=== PATIENT | female | born 1955 | race Caucasian/White ===

== ENCOUNTER 2020-10-03 17:35 | Observation (INO) ==
[2020-10-03] MEDS ORDERED: ONDANSETRON 4 MG/2 ML VIAL IV ONE (17:42)
[2020-10-03] MEDS ORDERED: 0.9 % SODIUM CHLORIDE 2,000 ML IV ONE (17:42)
--- NOTE | 2020-10-03 17:54 | Emergency Department Note ---
Weakness HPI General Chief complaint: Weakness Stated complaint: Weakness Time Seen by Provider: 10/03/20 17:42 Source: patient, family, RN notes reviewed and old records reviewed Mode of arrival: ambulatory Limitations: altered mental status History of Present Illness HPI Narrative: Narrative: A 65-year-old female complaining of generalized weakness. Per her family she was recently discharged from [facility] for pancreatic cancer. She had a stent placed in her duodenum so that she was able to eat. She has been taking her pain medicines. Patient is had increasing generalized weakness to the point where she cannot get up and get out of bed anymore. She is not eating or drinking. Per her son who is at bedside she has had poor p.o. intake for the last 2 to 3 days. He denies any other complaints no vomiting no shift but the patient does complain of nausea no fevers or chills no bowel or bladder changes. MD Complaint: generalized weakness and lack of energy Onset (ago): day(s) Duration: constant Location: generalized Migration: none Quality: aching and dull Improves with: medication Worsens with: movement Context: recent illness Associated symptoms: Reports confusion, loss of appetite and nausea/vomiting; Denies chest pain, dark stools, diaphoresis, dysuria, easy bruising, fever/chil ls, headaches, myalgias, rash, shortness of breath and syncope Related Data Previous Rx's Medication Instructions Recorded cyanocobalamin (vitamin B-12) 1,000 mcg IM QMONTH #1 ml 05/07/19 1,000 mcg/mL injection solution cyclobenzaprine 10 mg tablet 10 mg PO TID PRN #60 tab 09/29/20 diazepam 5 mg tablet 5 mg PO QHS PRN #30 tab 09/29/20 Allergies Allergy/AdvReac Type Severity Reaction Status Date / Time codeine Allergy Intermediate Unknown Verified 09/29/20 14:30 Review of Systems ROS ROS Narrative: Narrative: All systems ED: reviewed and negative except as stated. [facility] Narrative Patient History Narrative: Narrative: Medical/Surgical/Family History All Active Problems (Updated 10/03/20 @ 18:16 by Nick Li MD) Pancreatic mass (Acute) Abdominal pain (Acute) Pancreatic cancer (Acute) Heartburn (Acute) Abdominal pain (Acute) Exposure to STD (Acute) Medical History (Updated 10/03/20 @ 18:16 by Nick Li MD) Annual physical exam Cervical disc disorder with radiculopathy Depression Dermatitis Fatigue Hyperlipidemia IBS (irritable bowel syndrome) Insomnia Knee pain Menopausal symptoms Neck pain Other salvage determiner (current) drug therapy Panic attack Radiculopathy, lumbar region Shoulder impingement syndrome Stress Surgical History H/O section H/O tubal ligation Family History Mother Hypertension Hyperlipidemia Father Prostate cancer Social History Smoking Status: Never smoker Exam Narrative Narrative: Narrative: General Limitations: altered mental status General appearance: Present cachectic, grimacing, in distress, lethargic, malaise and thin Head Head: Present atraumatic, normocephalic and normal inspection Eye Eye: Present normal appearance, PERRL and EOMI; Absent scleral icterus and conjunctival injection ENT ENT: Present normal exam, normal oropharynx and mucous membranes dry Neck Neck: Present normal inspection, full ROM and trachea midline; Absent tenderness, lymphadenopathy and thyromegaly Chest Chest: Present normal inspection and symmetric chest wall rise; Absent tenderness Respiratory Respiratory: Present normal lung sounds bilaterally; Absent respiratory distress, wheezes, stridor, accessory muscle use and prolonged expiratory phase Cardiovascular Cardiovascular: Present normal rhythm and tachycardia; Absent systolic murmur and diastolic murmur Adbominal Abdominal: Present soft, tenderness and hypoactive bowel sounds; Absent distention, guarding, rebound, rigidity, organomegaly, trauma, ascites, mass, b ruit, pulsatile mass and hernia Extremities Extremities: Present normal inspection and full ROM; Absent normal capillary refill, pedal edema, pretibial edema and calf tenderness Back Back: Present normal inspection; Absent CVA tenderness (R), CVA tenderness (L) and spinous process tenderness Neurological Neurological: Present alert; Absent motor sensory deficit Expanded Neurological Patient oriented to: Present person Speech: Present fluid speech Coma Scale Eye Opening: To Voice Coma Scale Motor Response: Localizes to Pain Coma Scale Verbal Response: Confused Coma Scale Total: 12 Psychiatric Psychiatric: Present flat affect and tearful Skin Skin: Present warm (WNL) and dry Course Vital Signs Vital signs: Vital Signs Temperature 98.4 F 10/03/20 17:36 Pulse Rate 111 H 10/03/20 17:36 Respiratory Rate 20 10/03/20 17:36 Blood Pressure 120/90 10/03/20 17:36 Pulse Oximetry (%) 99 10/03/20 17:36 Temperature 98.2 F 10/04/20 04:00 Pulse Rate 106 H 10/04/20 04:00 Respiratory Rate 16 10/04/20 04:00 Blood Pressure 120/80 10/04/20 04:00 Pulse Oximetry (%) 96 10/04/20 04:00 MDM MDM Narrative Medical decision making narrative: Narrative: 65-year-old female with pancreatic cancer complaining of weakness associated with poor p.o. intake and pain medication use with continued unrelenting pain. Labs were ordered IV fluids was ordered IV pain medicines as ordered and on abdominal CT scan were ordered these are pending and care is endorsed to Dr. Smith at 1800 hrs. Lab Data Result diagrams: 10/03/20 17:58 10/03/20 17:58 Labs: Lab Results 10/03/20 10/03/20 10/03/20 Range/Units 17:58 17:58 17:58 WBC 5.9 (4.5-11.0) K/mcL RBC 3.89 L (4.00-5.20) M/mcL Hgb 12.4 (12.0-15.0) g/dL Hct 38.9 (36.0-48.0) % MCV 100.0 (80.0-100.0) fL MCH 31.9 (26.0-34.0) pg MCHC 31.9 (31.0-36.0) g/dL RDW 11.3 L (11.5-14.5) % Plt Count 300 (140-440) K/mcL MPV 9.8 (7.4-10.4) fL Neut % (Auto) 50.9 (38.0-78.0) % Lymph % (Auto) 36.0 (15.0-49.0) % [place] % (Auto) 8.3 (1.0-12.0) % Eos % (Auto) 4.1 (0.0-7.0) % Baso % (Auto) 0.7 (0.0-2.0) % Lymph # (Auto) 2.13 (1.50-4.80) K/mcL [place] # (Auto) 0.49 (0.10-0.90) K/mcL Eos # (Auto) 0.24 (0.00-0.70) K/mcL Baso # (Auto) 0.04 (0.00-0.20) K/mcL Absolute Neutrophils 3.02 (1.80-8.00) K/mcL VBG Lactic Acid (0.5-2.0) mmol/L Sodium 136 (133-145) mmol/L Potassium 3.7 (3.3-5.1) mmol/L Chloride 100 (96-108) mmol/L Carbon Dioxide 26 (22-30) mmol/L Anion Gap 10.0 (8.0-16.0) BUN 6 L (8-23) mg/dL Creatinine 0.8 (0.6-1.1) mg/dL GFR Calculation 78 Glucose 102 (70-105) mg/dL Calcium 9.4 (8.6-10.4) mg/dL Total Bilirubin 0.3 (0.1-1.0) mg/dL AST 16 (<32) U/L ALT 8 (<40) U/L Alkaline Phosphatase 88 (39-117) U/L Troponin T < 0.01 (<0.03) ng/mL Total Protein 6.7 (5.9-8.4) gm/dL Albumin 3.6 (3.2-5.2) gm/dL Globulin 3.1 (2.2-3.7) gm/dL Albumin/Globulin Ratio 1.2 (1.0-2.3) 10/03/20 Range/Units 18:13 WBC (4.5-11.0) K/mcL RBC (4.00-5.20) M/mcL Hgb (12.0-15.0) g/dL Hct (36.0-48.0) % MCV (80.0-100.0) fL MCH (26.0-34.0) pg MCHC (31.0-36.0) g/dL RDW (11.5-14.5) % Plt Count (140-440) K/mcL MPV (7.4-10.4) fL Neut % (Auto) (38.0-78.0) % Lymph % (Auto) (15.0-49.0) % [place] % (Auto) (1.0-12.0) % Eos % (Auto) (0.0-7.0) % Baso % (Auto) (0.0-2.0) % Lymph # (Auto) (1.50-4.80) K/mcL [place] # (Auto) (0.10-0.90) K/mcL Eos # (Auto) (0.00-0.70) K/mcL Baso # (Auto) (0.00-0.20) K/mcL Absolute Neutrophils (1.80-8.00) K/mcL VBG Lactic Acid 0.9 (0.5-2.0) mmol/L Sodium (133-145) mmol/L Potassium (3.3-5.1) mmol/L Chloride (96-108) mmol/L Carbon Dioxide (22-30) mmol/L Anion Gap (8.0-16.0) BUN (8-23) mg/dL Creatinine (0.6-1.1) mg/dL GFR Calculation Glucose (70-105) mg/dL Calcium (8.6-10.4) mg/dL Total Bilirubin (0.1-1.0) mg/dL AST (<32) U/L ALT (<40) U/L Alkaline Phosphatase (39-117) U/L Troponin T (<0.03) ng/mL Total Protein (5.9-8.4) gm/dL Albumin (3.2-5.2) gm/dL Globulin (2.2-3.7) gm/dL Albumin/Globulin Ratio (1.0-2.3) ED POC Tests ED POC Tests: FER - SARS Antigen Negative EKG Data EKG #1: EKG attestation: Yes I reviewed and interpreted this EKG. EKG shows normal: sinus rhythm Rate: tachycardia (109) Rhythm: NSR P waves: LAE Ectopy: PVC Interpretation: nonspecific ST-T wave changes Pulse Oximetry Data Pulse Ox %: 99 Interpretation: 99% on room air and within normal limits Discharge Plan Patient/Caregiver Discharge Instructions Pt seen by E COMMERCE SPECIALIST/PA only: No Clinical Impression: Pancreatic cancer, Abdominal pain Patient Disposition: Still a Patient Discharge Date/Time: 10/03/20 22:15 Discharge Comment: Room 126
[2020-10-03] MEDS: morphine 2 MG/ML VIAL IV PRN ×2 (18:14→19:50)
[2020-10-03 18:33] LABS: Basophils # (Auto) 0.04 K/mcL (0.00-0.20); Basophils % (Auto) 0.7 % (0.0-2.0); Eosinophils # (Auto) 0.24 K/mcL (0.00-0.70); Eosinophils % (Auto) 4.1 % (0.0-7.0); Hematocrit 38.9 % (36.0-48.0); Hemoglobin 12.4 g/dL (12.0-15.0); Lymphocytes # (Auto) 2.13 K/mcL (1.50-4.80); Mean Corpuscular HGB Conc 31.9 g/dL (31.0-36.0); Mean Platelet Volume 9.8 fL (7.4-10.4); Monocytes # (Auto) 0.49 K/mcL (0.10-0.90); Monocytes % (Auto) 8.3 % (1.0-12.0); Neutrophils % (Auto) 50.9 % (38.0-78.0); Platelet Count 300 K/mcL (140-440); RBC 3.89 M/mcL (4.00-5.20); Red Cell Distribution Width 11.3 % (11.5-14.5); WBC 5.9 K/mcL (4.5-11.0)
[2020-10-03 18:55] LABS: ALT/SGPT 8 U/L (<40); AST/SGOT 16 U/L (<32); Albumin 3.6 gm/dL (3.2-5.2); Albumin/Globulin Ratio 1.2 (1.0-2.3); Alkaline Phosphatase 88 U/L (39-117); Bilirubin,Total 0.3 mg/dL (0.1-1.0); Blood Urea Nitrogen 6 mg/dL (8-23); Calcium 9.4 mg/dL (8.6-10.4); Carbon Dioxide 26 mmol/L (22-30); Chloride 100 mmol/L (96-108); Globulin 3.1 gm/dL (2.2-3.7); Glomerular Filtration Rate 78; Glucose 102 mg/dL (70-105)
--- NOTE | 2020-10-03 19:08 | Emergency Department Note ---
HPI General Chief complaint: Weakness Stated complaint: Weakness Time Seen by Provider: 10/03/20 17:42 Source: patient, family, RN notes reviewed and old records reviewed Mode of arrival: ambulatory Limitations: altered mental status History of Present Illness HPI Narrative: Narrative: 65-year-old female is brought in to the emergency department by her son because of severe abdominal pain, inability to take p.o. fluids, and sleeping much of the day. Yesterday the patient was able to have Jell-O and water today she has been in excruciating pain. She has mostly been asleep but she when she does wake up she is in pain. Patient was diagnosed with pancreatic cancer and seen at [facility]. A duodenal stent was placed because of obstruction. The family is awaiting consultation on Monday with the oncology surgeon and the oncology team regarding chemotherapy. At the present time the son is most c oncerned about pain and hydration/nutrition. During review of medications it was noted that the son believes diazepam was a pain medication and had been given that to her throughout the day the pain medicine to be given several hours prior to her presentation to the ER. It was felt that this medicine may be causing the patient's excessive somnolence. Related Data Previous Rx's Medication Instructions Recorded cyanocobalamin (vitamin B-12) 1,000 mcg IM QMONTH #1 ml 05/07/19 1,000 mcg/mL injection solution cyclobenzaprine 10 mg tablet 10 mg PO TID PRN #60 tab 09/29/20 diazepam 5 mg tablet 5 mg PO QHS PRN #30 tab 09/29/20 Allergies Allergy/AdvReac Type Severity Reaction Status Date / Time codeine Allergy Unknown Unknown Verified 10/04/20 07:48 Review of Systems ROS ROS Narrative: Narrative: Limitations: ROS unobtainable due to patients medical condition [facility] Narrative Patient History Narrative: Narrative: Medical/Surgical/Family History All Active Problems (Updated 10/04/20 @ 10:13 by Julian Diego MD) Pancreatic mass (Acute) Abdominal pain (Acute) Pancreatic cancer (Acute) Heartburn (Acute) Abdominal pain (Acute) Exposure to STD (Acute) Medical History (Updated 10/04/20 @ 10:13 by Julian Diego MD) Annual physical exam Cervical disc disorder with radiculopathy Depression Dermatitis Fatigue Hyperlipidemia IBS (irritable bowel syndrome) Insomnia Knee pain Menopausal symptoms Neck pain Other exterminator helper termite (current) drug therapy Panic attack Radiculopathy, lumbar region Shoulder impingement syndrome Stress Surgical History H/O section H/O tubal ligation Family History Mother Hypertension Hyperlipidemia Father Prostate cancer Social History Smoking Status: Never smoker Exam Narrative Narrative: Narrative: General Limitations: altered mental status General appearance: Present sleepy Head Head: Present atraumatic and normocephalic Eye Eye: Present PERRL ENT ENT: Present mucous membranes dry Neck Neck: Present normal inspection and trachea midline Chest Chest: Present normal inspection and symmetric chest wall rise Respiratory Respiratory: Present normal lung sounds bilaterally; Absent respiratory distress Cardiovascular Cardiovascular: Present regular rate and normal rhythm Adbominal Abdominal: Present tenderness (Primarily right upper quadrant and epigastric.) Extremities Extremities: Present normal inspection Back Back: Present normal inspection Neurological Neurological: Present other (Sleeping mostly but was able to be aroused and answer questions appropriately.) Psychiatric Psychiatric: Present normal affect (To the extent that this could be assessed.) Skin Skin: Present warm (WNL) and dry Course Reevaluation(s) Reevaluation #1: Discussed with son and reviewed her medicines. He has been giving her diazepam during the day for pain. Her last dose of diazepam was at 4:15 PM. She has been drowsy all day. Time: 18:30 Vital Signs Vital signs: Vital Signs Temperature 98.4 F 10/03/20 17:36 Pulse Rate 111 H 10/03/20 17:36 Respiratory Rate 20 10/03/20 17:36 Blood Pressure 120/90 10/03/20 17:36 Pulse Oximetry (%) 99 10/03/20 17:36 Temperature 99.1 F H 10/04/20 08:00 Pulse Rate 94 H 10/04/20 08:00 Respiratory Rate 20 10/04/20 08:00 Blood Pressure 124/81 10/04/20 08:00 Pulse Oximetry (%) 97 10/04/20 08:00 [facility] Narrative Medical decision making narrative: Narrative: 65-year-old female brought to the emerge department by her son because of excruciating abdominal pain, dehydration, and inability to take in nutrition. All of this is secondary to a pancreatic cancer diagnosis made last week made during the week. Differential diagnosis includes somnolence secondary to opiates, somnolence secondary to benzodiazepines, abdominal pain secondary to complications of pancr eatic cancer. Case was discussed with the hospitalist who came down evaluate the patient and felt the hospital could offer this patient both pain relief as well as hydration and possible nutrition support. Patient will be admitted to the hospital for further care. Lab Data Result diagrams: 10/03/20 17:58 10/03/20 17:58 Labs: Lab Results 10/03/20 10/03/20 10/03/20 Range/Units 17:58 17:58 17:58 WBC 5.9 (4.5-11.0) K/mcL RBC 3.89 L (4.00-5.20) M/mcL Hgb 12.4 (12.0-15.0) g/dL Hct 38.9 (36.0-48.0) % MCV 100.0 (80.0-100.0) fL MCH 31.9 (26.0-34.0) pg MCHC 31.9 (31.0-36.0) g/dL RDW 11.3 L (11.5-14.5) % Plt Count 300 (140-440) K/mcL MPV 9.8 (7.4-10.4) fL Neut % (Auto) 50.9 (38.0-78.0) % Lymph % (Auto) 36.0 (15.0-49.0) % [place] % (Auto) 8.3 (1.0-12.0) % Eos % (Auto) 4.1 (0.0-7.0) % Baso % (Auto) 0.7 (0.0-2.0) % Lymph # (Auto) 2.13 (1.50-4.80) K/mcL [place] # (Auto) 0.49 (0.10-0.90) K/mcL Eos # (Auto) 0.24 (0.00-0.70) K/mcL Baso # (Auto) 0.04 (0.00-0.20) K/mcL Absolute Neutrophils 3.02 (1.80-8.00) K/mcL VBG Lactic Acid (0.5-2.0) mmol/L Sodium 136 (133-145) mmol/L Potassium 3.7 (3.3-5.1) mmol/L Chloride 100 (96-108) mmol/L Carbon Dioxide 26 (22-30) mmol/L Anion Gap 10.0 (8.0-16.0) BUN 6 L (8-23) mg/dL Creatinine 0.8 (0.6-1.1) mg/dL GFR Calculation 78 Glucose 102 (70-105) mg/dL Calcium 9.4 (8.6-10.4) mg/dL Total Bilirubin 0.3 (0.1-1.0) mg/dL AST 16 (<32) U/L ALT 8 (<40) U/L Alkaline Phosphatase 88 (39-117) U/L Troponin T < 0.01 (<0.03) ng/mL Total Protein 6.7 (5.9-8.4) gm/dL Albumin 3.6 (3.2-5.2) gm/dL Globulin 3.1 (2.2-3.7) gm/dL Albumin/Globulin Ratio 1.2 (1.0-2.3) 10/03/20 Range/Units 18:13 WBC (4.5-11.0) K/mcL RBC (4.00-5.20) M/mcL Hgb (12.0-15.0) g/dL Hct (36.0-48.0) % MCV (80.0-100.0) fL MCH (26.0-34.0) pg MCHC (31.0-36.0) g/dL RDW (11.5-14.5) % Plt Count (140-440) K/mcL MPV (7.4-10.4) fL Neut % (Auto) (38.0-78.0) % Lymph % (Auto) (15.0-49.0) % [place] % (Auto) (1.0-12.0) % Eos % (Auto) (0.0-7.0) % Baso % (Auto) (0.0-2.0) % Lymph # (Auto) (1.50-4.80) K/mcL [place] # (Auto) (0.10-0.90) K/mcL Eos # (Auto) (0.00-0.70) K/mcL Baso # (Auto) (0.00-0.20) K/mcL Absolute Neutrophils (1.80-8.00) K/mcL VBG Lactic Acid 0.9 (0.5-2.0) mmol/L Sodium (133-145) mmol/L Potassium (3.3-5.1) mmol/L Chloride (96-108) mmol/L Carbon Dioxide (22-30) mmol/L Anion Gap (8.0-16.0) BUN (8-23) mg/dL Creatinine (0.6-1.1) mg/dL GFR Calculation Glucose (70-105) mg/dL Calcium (8.6-10.4) mg/dL Total Bilirubin (0.1-1.0) mg/dL AST (<32) U/L ALT (<40) U/L Alkaline Phosphatase (39-117) U/L Troponin T (<0.03) ng/mL Total Protein (5.9-8.4) gm/dL Albumin (3.2-5.2) gm/dL Globulin (2.2-3.7) gm/dL Albumin/Globulin Ratio (1.0-2.3) ED POC Tests ED POC Tests: FER - SARS Antigen Negative EKG Data EKG #1: EKG attestation: Yes I reviewed and interpreted this EKG. EKG shows normal: sinus rhythm, axis and QRS complexes Rate: tachycardia [place]/QRS: normal P waves: LAE Discharge Plan Patient/Caregiver Discharge Instructions Pt seen by INFORMATION SYSTEMS TECHNICIAN/PA only: No Clinical Impression: Pancreatic cancer, Abdominal pain Patient Disposition: Xfer As Inpt ([facility]) Discharge Date/Time: 10/03/20 22:15 Discharge Comment: Room 126
--- NOTE | 2020-10-03 21:04 | Internal Med History&Physical ---
HPI History of Present Illness Patient information: Note initiated : 10/03/20 at 8:54 pm Service Date, if different from initiated Date: [] Patient: Eunice Hong 65 y/o F admitted on for Weakness. Chief Complaint: [] History of present illness: Ms. Hong is a 65 year old female with recently diagnosed pancreatic cancer presented to the emergency department for abdominal pain inability to keep down liquids and food. The patient was recently seen at [facility] in [place] and had a duodenal stent placed. She was discharged to home on Monday after a brief hospital stay. The plan is for the oncology team at [facility] to the patient early next week to discuss a treatment plan. Review of available imaging which is a recent CT abdomen contrast 09/29/20 showed a large necrotic pancreas which is caused pain invasion of the third portion of the duodenum, no metastatic disease seen on the CT scan. I explained to the patient that we do not have oncology services's Hospital however we can offer pain control, IV fluid hydration and supportive care. Patient is planning to follow-up with [facility] to discuss treatment options. We discussed CODE STATUS, the patient wishes to be full code. Review of systems Constitutional: Positive for fatigue and recent 15 pound weight loss. Eyes: no vision changes or pain Cardiovascular: no chest pain, no palpitations Respiratory: no cough or dyspnea Gastrointestinal: Positive for abdominal pain, decreased appetite. Genitourinary: no dysuria or difficulty voiding Musculoskeletal: no arthralgia or myalgia Integumentary: no skin lesion or wound Neurological: no focal weakness or numbness Psychiatric: no anxiety or depression Physical exam General: Ill-appearing and cachectic female in no apparent distress Head: Atraumatic, normal inspection. Eyes: normal appearance, no scleral icterus. Neck: full ROM Respiratory: no respiratory distress. Cardiovascular: normal rate and rhythm, S1, S2. GI/Abdominal: Epigastric abdominal pain present, guarding. Extremities: full range of motion, nontender. Neurological: CN II-XII intact, intact motor, intact sensation. Psychiatric: normal mood. Skin: warm, normal color PFSH PFSH All Active Problems (Updated 10/03/20 @ 18:16 by Nick Li MD) Pancreatic mass (Acute) Abdominal pain (Acute) Pancreatic cancer (Acute) Heartburn (Acute) Abdominal pain (Acute) Exposure to STD (Acute) Medical History (Updated 10/03/20 @ 18:16 by Nick Li MD) Annual physical exam Cervical disc disorder with radiculopathy Depression Dermatitis Fatigue Hyperlipidemia IBS (irritable bowel syndrome) Insomnia Knee pain Menopausal symptoms Neck pain Other residential (current) drug therapy Panic attack Radiculopathy, lumbar region Shoulder impingement syndrome Stress Surgical History H/O section H/O tubal ligation Family History Mother Hypertension Hyperlipidemia Father Prostate cancer MEDS/ALLERGIES Home Medications and Allergies Home Medications Medication Instructions Recorded Confirmed Type cyanocobalamin (vitamin B-12) 1,000 mcg IM QMONTH #1 ml 05/07/19 09/29/20 Rx 1,000 mcg/mL injection solution cyclobenzaprine 10 mg tablet 10 mg PO TID PRN #60 tab 09/29/20 Rx diazepam 5 mg tablet 5 mg PO QHS PRN #30 tab 09/29/20 Rx Allergies Allergy/AdvReac Type Severity Reaction Status Date / Time codeine Allergy Intermediate Unknown Verified 09/29/20 14:30 EXAM Constitutional Vitals: Temp Pulse Resp BP Pulse Ox 98.4 F 84 18 127/84 100 10/03/20 17:36 10/03/20 20:46 10/03/20 20:46 10/03/20 20:46 10/03/20 20:46 DATA Data Completed and Pending Labs: Labs from last 24 hours 10/03/20 10/03/20 10/03/20 18:13 17:58 17:58 WBC RBC Hgb Hct MCV MCH MCHC RDW Plt Count MPV Neut % (Auto) Lymph % (Auto) [place] % (Auto) Eos % (Auto) Baso % (Auto) Lymph # (Auto) [place] # (Auto) Eos # (Auto) Baso # (Auto) Absolute Neutrophils VBG Lactic Acid 0.9 Sodium 136 Potassium 3.7 Chloride 100 Carbon Dioxide 26 Anion Gap 10.0 BUN 6 L Creatinine 0.8 GFR Calculation 78 Glucose 102 Calcium 9.4 Total Bilirubin 0.3 AST 16 ALT 8 Alkaline Phosphatase 88 Troponin T < 0.01 Total Protein 6.7 Albumin 3.6 Globulin 3.1 Albumin/Globulin Ratio 1.2 10/03/20 17:58 WBC 5.9 RBC 3.89 L Hgb 12.4 Hct 38.9 MCV 100.0 MCH 31.9 MCHC 31.9 RDW 11.3 L Plt Count 300 MPV 9.8 Neut % (Auto) 50.9 Lymph % (Auto) 36.0 [place] % (Auto) 8.3 Eos % (Auto) 4.1 Baso % (Auto) 0.7 Lymph # (Auto) 2.13 [place] # (Auto) 0.49 Eos # (Auto) 0.24 Baso # (Auto) 0.04 Absolute Neutrophils 3.02 VBG Lactic Acid Sodium Potassium Chloride Carbon Dioxide Anion Gap BUN Creatinine GFR Calculation Glucose Calcium Total Bilirubin AST ALT Alkaline Phosphatase Troponin T Total Protein Albumin Globulin Albumin/Globulin Ratio A/P Narrative A/P Narrative: Assessment: 65-year-old female with recently diagnosed pancreatic cancer admitted for abdominal pain and inability to keep down liquids and food. Patient was recently discharged from [facility] after having a stent placed in her duodenum. The patient was told she would be contacted early next week to discuss treatment options. Suspect the patient's abdominal pain is secondary to the cancer.. #Abdominal pain likely secondary to pancreatic cancer #Pancreatic cancer involving pancreatic head and uncinate process #Recent duodenal stent placement #Severe protein calorie malnourishment Plan -Analgesics as needed. -IV fluid. -Clear liquid diet. -Nutrition consult. -Serial abdominal exams, consider abdominal imaging. -DVT PPx: Lovenox SQ. -CODE STATUS: Full. -Disposition: TBD, consider transfer to [facility]. Time Spent With Patient Time: Total time spent is greater than 50% in coordination of care (as documented) at patient's floor/unit and/or counseling patient:
[2020-10-03] MEDS ORDERED: IOPAMIDOL 100 ML BOTTLE IV ONE (22:16)
[2020-10-03] MEDS ORDERED: HYDROmorphone 0.5 MG/0.5 ML SYRINGE IV PRN (22:23)
[2020-10-03] MEDS ORDERED: SENNOSIDES 1 TABLET PO SCH (22:23)
[2020-10-03] MEDS ORDERED: ACETAMINOPHEN 325 MG TABLET PO PRN (22:23)
[2020-10-03] MEDS ORDERED: ONDANSETRON 4 MG/2 ML VIAL IV PRN (22:23)
[2020-10-03] MEDS ORDERED: ENOXAPARIN 40 MG/0.4 ML SYRINGE ONE (22:37)
[2020-10-03] MEDS ORDERED: HYDROcodone/APAP 5/325MG TABLET PO ONE (23:32)
[2020-10-03] MEDS: ENOXAPARIN 40 MG/0.4 ML SYRINGE SQ SCH (23:32)
[2020-10-03] MEDS: 0.9 % SODIUM CHLORIDE 10 ML SYRINGE IV SCH (23:33)
[2020-10-03] MEDS: DOCUSATE SODIUM 100 MG CAPSULE PO SCH (23:33)
[2020-10-03] MEDS: DEXTROSE 5%-1/2NS W/20MEQ KCL 1,000 ML IV SCH (23:33)
[2020-10-03] MEDS: HYDROcodone/APAP 5/325MG TABLET PO PRN (23:34)
[2020-10-04] MEDS ORDERED: HYDROcodone/APAP 5/325MG TABLET PO ONE (04:58)
[2020-10-04] MEDS: 0.9 % SODIUM CHLORIDE 10 ML SYRINGE IV SCH ×2 (05:01→15:45)
[2020-10-04 05:58] LABS: Appearance,Urine CLEAR (Clear); Bilirubin,Urine Negative (Negative); Color,Urine YELLOW; Culture Indicated,Urine No; Glucose,Urine (UA) Negative (Negative); Ketones,Urine 20 mg/dL (Negative); Leukocyte Esterase,Urine Negative /ug (Negative); Nitrate,Urine Negative (Negative); Protein,Urine Negative (Negative); Specific Gravity,Urine 1.011 (1.000-1.035); Urine Blood Negative (Negative); Urobilinogen,Urine Negative
[2020-10-04] MEDS ORDERED: POLYETHYLENE GLYCOL 3350 17 GM PACKET PO SCH (09:00)
[2020-10-04] MEDS: HYDROcodone/APAP 5/325MG TABLET PO PRN (09:14)
[2020-10-04] MEDS ORDERED: HYDROmorphone 0.5 MG/0.5 ML SYRINGE IV ONE (09:44)
[2020-10-04] MEDS ORDERED: HYDROmorphone 0.5 MG/0.5 ML SYRINGE IV PRN ×2 (09:46→16:48)
[2020-10-04] MEDS ORDERED: NALOXONE HCL 0.4 MG/ML VIAL IV PRN (09:46)
[2020-10-04] MEDS: DEXTROSE 5%-1/2NS W/20MEQ KCL 1,000 ML IV SCH (09:53)
[2020-10-04] MEDS: ENOXAPARIN 40 MG/0.4 ML SYRINGE SQ SCH (09:56)
[2020-10-04] MEDS: DOCUSATE SODIUM 100 MG CAPSULE PO SCH (11:06)
--- NOTE | 2020-10-04 14:27 | Internal Med Progress Note ---
SUBJECTIVE Subjective Patient information: Note initiated : 10/04/20 at 2:23 pm Service Date, if different from initiated Date: [] Patient: Eunice Hong 65 y/o F admitted on 10/03/20 for Weakness. Chief Complaint: [] Interval history: Ms. Hong is a 65 year old female with recently diagnosed pancreatic cancer presented to the emergency department for abdominal pain inability to keep down liquids and food. The patient was recently seen at [facility] in [place] and had a duodenal stent placed. She was discharged to home on Monday after a brief hospital stay. The plan is for the oncology team at [facility] to the patient early next week to discuss a treatment plan. Review of available imaging which is a recent CT abdomen contrast 09/29/20 showed a large necrotic pancreas which is caused pain invasion of the third portion of the duodenum, no metastatic disease seen on the CT scan. I explained to the patient that we do not have oncology services[facility] however we can offer pain control, IV fluid hydration and supportive care. Patient is planning to follow-up with [facility] to discuss treatment options. We discussed CODE STATUS, the patient wishes to be full code. 10/04 Persistent abdominal pain, the patient is retaining urine. Dasilva catheter placed. CT abdomen/pelvis w contrast to evaluate for acute changes. Pain has not been well controlled. Changed medications to favor IV dilaudid prn, considering [employer]. Review of systems: persistent abdominal pain Physical exam General: Ill-appearing and cachectic female in no apparent distress Head: Atraumatic, normal inspection. Eyes: normal appearance, no scleral icterus. Neck: full ROM Respiratory: no respiratory distress. Cardiovascular: normal rate and rhythm, S1, S2. GI/Abdominal: Epigastric abdominal tenderness, involuntary guarding. Extremities: full range of motion, nontender. Neurological: CN II-XII intact, intact motor, intact sensation. Psychiatric: normal mood. Skin: warm, normal color Constitutional Vitals: Vital Signs Temp Pulse Resp BP Pulse Ox 98.7 F 92 H 22 133/84 96 10/04/20 12:00 10/04/20 12:00 10/04/20 12:00 10/04/20 12:00 10/04/20 12:00 Period Temp Pulse Resp BP Sys/Mcdonough Pulse Ox Last 24 Hr 97.8 F-99.1 F 77-111 12-22 120-150/80-94 95-100 Intake and Output 10/04/20 10/04/20 10/04/20 05:59 13:59 21:59 Intake Total 100 1000 Output Total 600 Balance -500 1000 Weight 48.489 kg Intake & Output: Intake & Output 10/04/20 10/04/20 10/04/20 05:59 13:59 21:59 Intake Total 100 1000 Output Total 600 Balance -500 1000 Weight 48.489 kg Intake: IV 1000 Dextrose 5%-1/2Ns W/20Meq KCl 1 1000 ,000 ml @ 100 mls/hr IV .Q10H [facility] Rx#:[id number] Oral 100 Output: Void Amount 600 Other: Urine Appearance Clear Urine Color Dark Yellow Urine Odor Normal # Bowel Movements 0 OBJ DATA Labs CBC & Chem 7: 10/03/20 17:58 10/03/20 17:58 Labs: Abnormal Lab Results 10/04/20 10/03/20 10/03/20 05:30 17:58 17:58 RBC 3.89 L RDW 11.3 L BUN 6 L Urine Ketones 20 A Meds: Medications Docusate Sodium (Docusate Sodium 100 Mg Capsule) 100 mg PO BID [facility] Last Admin: 10/04/20 11:06 Dose: 100 mg Documented by: Enoxaparin Sodium (Enoxaparin 40 Mg/0.4 Ml Syringe) 40 mg SQ DAILY [facility] Last Admin: 10/04/20 09:56 Dose: 40 mg Documented by: Hydromorphone HCl (Hydromorphone 0.5 Mg/0.5 Ml Syringe) 0.5 mg IV Q1HP PRN; Protocol PRN Reason: Per Pain Protocol Potassium Chloride/Dextrose/Sod Cl (Dextrose 5%-1/2ns W/20meq Kcl) 1,000 mls @ 100 mls/hr IV .Q10H [facility] Last Admin: 10/04/20 09:53 Dose: 100 mls/hr Documented by: Naloxone HCl (Naloxone Hcl 0.4 Mg/Ml Vial) 0.2 mg IV Q5M PRN PRN Reason: Opiate Reversal Ondansetron HCl (Ondansetron 4 Mg/2 Ml Vial) 4 mg IV Q6HP PRN PRN Reason: Nausea And Vomiting Polyethylene Glycol (Polyethylene Glycol 3350 17 Gm Packet) 17 gm PO DAILY [facility] Last Admin: 10/04/20 11:06 Dose: 17 gm Documented by: Senna (Sennosides 1 Tablet) 2 tab PO HS [facility] Last Admin: 10/03/20 23:33 Dose: Not Given Documented by: Sodium Chloride (0.9 % Sodium Chloride 10 Ml Syringe) 10 ml IV Q8 [facility] Last Admin: 10/04/20 05:01 Dose: 10 ml Documented by: A/P Narrative A/P Narrative: Assessment: 65-year-old female with recently diagnosed pancreatic cancer admitted for abdominal pain and inability to keep down liquids and food. Patient was recently discharged from [facility] after having a stent placed in her duodenum. The patient was told she would be contacted early next week to discuss treatment options. Suspect the patient's abdominal pain is secondary to the cancer.. #Abdominal pain likely secondary to pancreatic cancer #Pancreatic cancer involving pancreatic head and uncinate process #Recent duodenal stent placement #Urinary retention #Severe protein calorie malnourishment Plan -Analgesics as needed, consider [employer]ER. -IV fluid. -Clear liquid diet. -Place dasilva catheter. -CT abdomen/pelvis w contrast -Nutrition consult. -Serial abdominal exams, consider abdominal imaging. -DVT PPx: Lovenox SQ. -CODE STATUS: Full. -Disposition: TBD, consider transfer to [facility]. Time Spent With Patient Time: Total time spent is greater than 50% in coordination of care (as documented) at patient's floor/unit and/or counseling patient: QUALITY VTE Deep Vein Thrombosis/Pulmonary Embolism Present on Admission: No
--- NOTE | 2020-10-04 14:38 | Cat Scan Report ---
History pancreatic cancer, increasing abdominal pain, status post recent duodenal stent placement TECHNIQUE: The patient was imaged following intravenous contrast scanning during the portal venous phase from the diaphragm to the symphysis pubis. Sagittal and coronal reformats were created. Radiation exposure was limited using dose reduction technology. FINDINGS: Mild dependent atelectasis is present posteriorly in both lung bases. No pleural effusion is present. There are a few subtle low-attenuation lesions in the right lobe of the liver. One is located beneath the diaphragm high in segment eight. This is seen on axial image #14 and measures roughly 1.1 cm. Anterolaterally in segment seven there is a subcapsular 1 cm low density lesion seen on axial image 27 and in segment IVb anterior to the gallbladder there is a more subtle 5 mm lesion seen on axial image 43. Posteriorly in segment six on image 39 and 40 there are two contiguous subtle low density lesions measuring approximately 6 mm in size. These lesions were not identified on the prior study done on 09/29/20. These are probably metastasis which are seen better on today's study due to differences in the phase of the contrast administration. The gallbladder has a thin wall and there are no stones. The bile ducts are nondilated. Spleen is normal in size and homogeneous. Along the inferior border of the head and uncinate process of the pancreas, there is an irregular necrotic tumor which extends exophytically. It measures roughly 3.3 x 3.9 x 4.1 cm. There is no associated hemorrhage. The neck body and tail the pancreas are normal. Pancreatic duct is nondilated. There is no associated hemorrhage or pseudocyst. An expansile stent has been placed into the third and fourth portions of the duodenum. The stent contains some ingested material. Proximal to the stent the duodenum is normal caliber. The stomach contains moderate amount of fluid but is not abnormally distended. The ligament of Treitz and jejunum are normal. The adrenals and kidneys are normal. There is no hydronephrosis. There is some barium in the large intestine following a prior study. Large intestine is normal in caliber. Patient does have mild ileus pattern with borderline dilatation of jejunum and ileum and a couple small air-fluid levels. Small amount of ascites has developed since 09/29/20. Urinary bladder is over distended. No abnormality is seen in the uterus or ovaries. Degenerative changes are again seen in the spine. There is no evidence of bone metastasis. IMPRESSION: Large tumor in the head and uncinate process of the pancreas. The necrotic component may be enlarging. Several vague low-attenuation liver lesions which are most likely metastasis Small amount of ascites Over distended urinary bladder Dr. Parmar was called with the report Interpreted and Authenticated by: Alexis Garcia 10/04/20
[2020-10-04] MEDS ORDERED: DEXTROSE 5%-1/2NS W/20MEQ KCL 1,000 ML IV SCH (16:48)
--- NOTE | 2020-10-04 18:13 | Discharge Summary ---
Discharge Provider Provider Patient information: Note initiated : 10/04/20 at 6:05 pm Service Date, if different from initiated Date: [] Patient: Eunice Hong 65 y/o F admitted on 10/03/20 for Weakness. Chief Complaint: [] Date of admission: 10/03/20 22:15 Discharge date: 10/04/20 Primary care physician: Justyna Moncada Consults: 10/03/20 Consult to Physician [CONS] Stat Comment: Consulting Provider: Juancarlos Parmar Reason For Exam: Physician to Consult Discharge Meds Discharge Medications Home Medications cyanocobalamin (vitamin B-12) 1,000 mcg/mL injection solution 1,000 mcg IM QMONTH #1 ml 05/07/19 [Rx Confirmed 10/03/20 Last Taken 09/18/20 08:00] cyclobenzaprine 10 mg tablet 10 mg PO TID PRN #60 tab 09/29/20 [Rx Confirmed 10/03/20 Last Taken 10/03/20 08:00] diazepam 5 mg tablet 5 mg PO QHS PRN #30 tab 09/29/20 [Rx Confirmed 10/03/20 Last Taken 10/03/20] hydrocodone-acetaminophen 1 tab PO Q4H PRN #10 tab 10/04/20 [Rx Last Taken Unknown] COURSE Hospital Course Hospital course: Ms. Hong is a 65 year old female with recently diagnosed pancreatic cancer presented to the emergency department for abdominal pain inab ility to keep down liquids and food. The patient was recently seen at [facility] in [place] and had a duodenal stent placed. She was discharged to home on Monday after a brief hospital stay. The plan is for the oncology team at [facility] to the patient early next week to discuss a treatment plan. Review of available imaging which is a recent CT abdomen contrast 09/29/20 showed a large necrotic pancreas which is caused pain invasion of the third portion of the duodenum, no metastatic disease seen on the CT scan. I explained to the patient that we do not have oncology services[facility] Hospital however we can offer pain control, IV fluid hydration and supportive care. Patient is planning to follow-up with [facility] to discuss treatment options. We discussed CODE STATUS, the patient wishes to be full code. 10/04 Persistent abdominal pain, the patient is retaining urine. Mejia catheter placed. CT abdomen/pelvis w contrast to evaluate for acute changes, no acute nancy nges but two suspicious liver lesions not seen on previous CT scan concerning for metastasis, pancreatic mass necrosis component may have enlarged since last CT scan on 09/29/20. Pain has not been well controlled so changed medications to favor IV dilaudid prn and considering [employer]. Started scheduled Toradol. Family care conference held at bedside, discussed transfer to [facility]. Called transfer center and spoke with hepatobiliary surgery, the patient was accepted for transfer to [facility]. Family will take the patient by private vehicle. Discharged for transfer via private vehicle to [facility]. Physical exam Head: Atraumatic, normal inspection. Eyes: normal appearance, no scleral icterus. Neck: full ROM Respiratory: no respiratory distress. Cardiovascular: normal rate and rhythm, S1, S2. GI/Abdominal: diffuse tenderness, involuntary guarding Extremities: full range of motion, nontender. Neurological: CN II-XII intact, intact motor, intact sensation. Psychiatric: normal mood. Skin: warm, normal color Discharge diagnosis: Intractable abdominal pain Secondary discharge diagnosis: Pancreatic cancer Time Spent with Patient Time attestation: Total time spent providing and/or coordinating discharge services: EXAM Constitutional Vitals: Temp Pulse Resp BP Pulse Ox 98.7 F 96 H 14 132/88 91 10/04/20 16:00 10/04/20 16:00 10/04/20 16:00 10/04/20 16:00 10/04/20 16:00 Discharge Data Data Completed and Pending Labs on day of discharge: Labs from last 24 hours 10/04/20 10/03/20 10/03/20 05:30 18:13 17:58 WBC RBC Hgb Hct MCV MCH MCHC RDW Plt Count MPV Neut % (Auto) Lymph % (Auto) [place] % (Auto) Eos % (Auto) Baso % (Auto) Lymph # (Auto) [place] # (Auto) Eos # (Auto) Baso # (Auto) Absolute Neutrophils VBG Lactic Acid 0.9 Sodium Potassium Chloride Carbon Dioxide Anion Gap BUN Creatinine GFR Calculation Glucose Calcium Total Bilirubin AST ALT Alkaline Phosphatase Troponin T < 0.01 Total Protein Albumin Globulin Albumin/Globulin Ratio Urine Color Yellow Urine Appearance Clear Urine pH 6.0 Ur Specific [place] 1.011 Urine Protein Negative Urine Glucose (UA) Negative Urine Ketones 20 A Urine Occult Blood Negative Urine Nitrate Negative Urine Bilirubin Negative Urine Urobilinogen Negative Ur Leukocyte Esterase Negative Ur Culture Indicated? No 10/03/20 10/03/20 17:58 17:58 WBC 5.9 RBC 3.89 L Hgb 12.4 Hct 38.9 MCV 100.0 MCH 31.9 MCHC 31.9 RDW 11.3 L Plt Count 300 MPV 9.8 Neut % (Auto) 50.9 Lymph % (Auto) 36.0 [place] % (Auto) 8.3 Eos % (Auto) 4.1 Baso % (Auto) 0.7 Lymph # (Auto) 2.13 [place] # (Auto) 0.49 Eos # (Auto) 0.24 Baso # (Auto) 0.04 Absolute Neutrophils 3.02 VBG Lactic Acid Sodium 136 Potassium 3.7 Chloride 100 Carbon Dioxide 26 Anion Gap 10.0 BUN 6 L Creatinine 0.8 GFR Calculation 78 Glucose 102 Calcium 9.4 Total Bilirubin 0.3 AST 16 ALT 8 Alkaline Phosphatase 88 Troponin T Total Protein 6.7 Albumin 3.6 Globulin 3.1 Albumin/Globulin Ratio 1.2 Urine Color Urine Appearance Urine pH Ur Specific [place] Urine Protein Urine Glucose (UA) Urine Ketones Urine Occult Blood Urine Nitrate Urine Bilirubin Urine Urobilinogen Ur Leukocyte Esterase Ur Culture Indicated? Discharge Plan Patient/Caregiver Discharge Instructions Activity: increase activity as tolerated Diet: Full Liquid Prescriptions: New hydrocodone-acetaminophen 5-325 mg tablet 1 tab PO Q4H PRN (Reason: pain) Qty: 10 RF: 0 Continued cyanocobalamin (vitamin B-12) 1,000 mcg/mL solution 1,000 mcg IM QMONTH Qty: 1 RF: 12 cyclobenzaprine 10 mg tablet 10 mg PO TID PRN (Reason: muscle spasm) Qty: 60 RF: 0 diazepam [Valium] 5 mg tablet 5 mg PO QHS PRN (Reason: sedation) Qty: 30 RF: 0 Follow Up Plan Follow up with: Justyna Moncada ARNP [Primary Care Provider] - Patient Disposition: General Acute Hospital Overall status at discharge: patient is not back to baseline Discharge Orders: Discharge Order (Routine); Ordered 10/04/20 Ordered By: Juancarlos ARENAS VTE Deep Vein Thrombosis/Pulmonary Embolism Present on Admission: No
[2020-10-04] MEDS: KETOROLAC 15 MG/ML VIAL IV SCH (19:00)
--- NOTE | 2020-10-05 11:12 | EKG ---
[facility] Test Date: 2020-10-03 Pat Name: Eunice Hong Department: ED Room: Gender: Female [employer]: : 1955 Requested By: Nick Li Order Number: [id number] Reading MD: Chris Bass M.D. Measurements Intervals [place] Rate: 109 P: 62 [place]: 118 QRS: 7 QRSD: 81 T: 12 QT: 334 QTc: 450 Interpretive Statements Sinus tachycardia NO PRIOR TRACING FOR COMPARISON RSR' in V1 or V2, right VCD or RVH Borderline T abnormalities, anterior leads BORDERLINE TRACING Electronically Signed On 10-05-2020 11:12:20 PDT by Chris Bass M.D. /[id number]
== END 2020-10-04 18:48 | disposition short-term general hospital (02) ==
LOC: ED 17:35 → MEDSUR 17:35
PROVIDERS: ADMIT Internal Medicine; ATTEND Internal Medicine